=== PATIENT | male | born 1965 | race Caucasian/White ===

== ENCOUNTER 2017-07-21 09:15 | Day surgery (SDC) | payer OTHER ==
[2017-07-19 15:28] VITALS: BMI 29.4
[~2017-07-21 09:15] MED LIST: LACTATED RINGERS 1,000 ML IV SCH
[2017-07-21 09:37] VITALS: TEMP 98.3
[2017-07-21] MEDS ORDERED: LIDOCAINE 1% 20 ML VIAL (10MG/ML) FOR IV START INTRADERMA ONE (09:48)
[2017-07-21] MEDS ORDERED: LIDOCAINE 1% INJ 10MG/ML (20 ML MDV) ONE (10:23)
[2017-07-21] MEDS ORDERED: PROPOFOL 10 MG/ML 20 ML VIAL IV ONE (10:23)
[2017-07-21] MEDS ORDERED: fentaNYL (PF) 50 MCG/ML 2 ML AMP ONE (10:23)
[2017-07-21] MEDS ORDERED: MIDAZOLAM 2 MG/2 ML VIAL ONE (10:23)
--- NOTE | 2017-07-21 10:58 | P.PCN ---
Date of Procedure: 07/21/17 Procedure(s) Performed: Procedure: Colonoscopy and polypectomy. Preoperative diagnosis: Screening for neoplasia. Postoperative diagnosis: 1. Mild diverticulosis with no evidence of acute diverticulitis or strictures. 2. Multiple small polyps snared but no large polyps or cancer. Preparation: HalfLytely prep. Sedation: Was provided by anesthesia. Brief clinical history: The patient is a 52-year-old male who is referred for this evaluation for screening for neoplasia age being his risk factor. He has no abdominal complaints, bleeding or anemia. No family history of colon cancer. This would be his first colonoscopy. Procedure: With the patient on his left lateral decubitus position and after informed consent and adequate sedation, the perianal area was inspected and it did not show any fissures or fistulas. There were no masses felt on digital rectal examination. The Olympus CFQ 160L video colonoscope was then inserted in the rectum in the usual fashion and advanced to the cecum. There were several small and diminutive polyps noted in the cecum, hepatic flexure, sigmoid and rectum which were snared but there were no large polyps or cancer. There were occasional diverticular orifices seen on the right side with no evidence of acute diverticulitis or strictures. The mucosa appeared healthy. I retroflexed the endoscope in the rectum before the endoscope was withdrawn The patient tolerated the procedure well. Plan: The patient was reassured. Discussed dietary measures. I recommended repeat exam in 3-5 years depending on his pathology results. He will follow up with you as planned.
[2017-07-21 11:11] VITALS: RESP 16
[2017-07-21 11:13] VITALS: BP 144/87; PULSE 80
== END 2017-07-21 11:41 | disposition home or self-care (01) ==
LOC: ORWHC2ENDO 09:15
DX: Z12.11 Encounter for screening for malignant neoplasm of colon (principal); D12.0 Benign neoplasm of cecum; D12.3 Benign neoplasm of transverse colon; D12.5 Benign neoplasm of sigmoid colon; D12.8 Benign neoplasm of rectum; K63.5 Polyp of colon; K57.30 Diverticulosis of large intestine without perforation or abscess without bleeding; E78.5 Hyperlipidemia, unspecified; M54.5 Low back pain; I10 Essential (primary) hypertension; F17.200 Nicotine dependence, unspecified, uncomplicated; K21.9 Gastro-esophageal reflux disease without esophagitis; Z79.1 Long term (current) use of non-steroidal anti-inflammatories (NSAID); Z88.0 Allergy status to penicillin; Z79.899 Other long term (current) drug therapy
CPT/HCPCS: 88305; 45385; J2250; J2001; J3010; J2704

== ENCOUNTER → 2019-06-15 | Outpatient (CLI) | payer OTHER ==
--- NOTE | 2019-06-15 12:06 | ECHOS ---
STRESS ECHOCARDIOGRAM DATE OF SERVICE: 06/15/2019 INDICATIONS: Chest pain. MEDICATIONS: BASELINE HEART RATE: 65 BASELINE BLOOD PRESSURE: 110/61 MAXIMUM HEART RATE: 143 MAXIMUM BLOOD PRESSURE: 168/79 85% MPHR: 142 100% MPHR: 167 METS: 9 MAXIMUM STAGE REACHED: III TOTAL EXERCISE TIME: 7-1/2 minutes CLINICAL INFORMATION: Baseline EKG shows sinus rhythm, normal axis, normal intervals. Patient exercised on Damion protocol for a total of 7-1/2 minutes, achieving 9 METs, 85% of predicted maximal heart rate without chest pain or diagnostic ST-segment depression. Baseline echo shows normal left ventricular size, wall motion and systolic function. Postexercise, there is normal hyperdynamic response of all segments of myocardium noted. CONCLUSIONS: 1. Above-average exercise tolerance. 2. Negative stress test by EKG criteria. 3. Negative stress echo. MMMARIO / ANSELMON: [id number] /
== END | disposition home or self-care (01) ==
LOC: RADNMMAIN 09:01
PROVIDERS: ATTEND Family Medicine
DX: I10 Essential (primary) hypertension (principal); I25.10 Atherosclerotic heart disease of native coronary artery without angina pectoris; R53.83 Other fatigue
CPT/HCPCS: 93351

== ENCOUNTER → 2019-09-25 | Outpatient (CLI) | payer OTHER ==
--- NOTE | 2019-09-26 07:51 | US ---
EXAMINATION TYPE: US kidneys/renal and bladder DATE OF EXAM: 09/25/2019 COMPARISON: NONE CLINICAL HISTORY: N39.8 Incomplete voiding.Trouble urinating. EXAM MEASUREMENTS: Right Kidney: 11.7 x 5.6 x 4.8 cm Left Kidney: 11.7 x 5.8 x 4.8 cm Post Void Residual Volume: 194.4 mL Right Kidney: No hydronephrosis or masses seen Left Kidney: No hydronephrosis or masses seen Bladder: wnl Bilateral Jets seen: Yes Normal Post Void Residual: No There is no evidence for hydronephrosis at this point in time. No nephrolithiasis is seen. No huey s are identified. The urinary bladder is anechoic. Bilateral ureteral jets are seen. IMPRESSION: Abnormal post void residual in the urinary bladder of 194.4 mL.
== END | disposition home or self-care (01) ==
LOC: RADUSWWP 15:32
PROVIDERS: ATTEND Family Medicine
DX: N39.0 Urinary tract infection, site not specified (principal); R33.9 Retention of urine, unspecified; Z88.0 Allergy status to penicillin
CPT/HCPCS: 76770

== ENCOUNTER → 2021-09-18 | Outpatient (CLI) | payer OTHER ==
--- NOTE | 2021-09-18 10:58 | NM ---
EXAMINATION TYPE: NM bone scan whole body DATE OF EXAM: 09/18/2021 COMPARISON: NONE HISTORY: Prostate carcinoma Delayed whole-body scanning was performed following the injection of 25.2 mCi Tc 99m MDP. Images acq uired 3 hours post injection. FINDINGS: Soft tissue uptake is normal. Uptake within the feet, ankles, knees, hands, wrists, elbows, shoulders , sternoclavicular joints is likely degenerative. Uptake at the mandible and maxilla likely due to p eriodontal disease No areas of abnormal increased or decreased uptake to suggest metastatic disease. IMPRESSION: No evident metastatic disease.
== END | disposition home or self-care (01) ==
LOC: RADNMMAIN 07:12
PROVIDERS: ATTEND Family Medicine
DX: C61 Malignant neoplasm of prostate (principal)
CPT/HCPCS: 78306; A9503

== ENCOUNTER 2022-10-19 08:42 | Day surgery (SDC) | payer OTHER ==
[~2022-10-19 08:42] MED LIST changes: +LIDOCAINE 1% (10MG/ML) FOR IV START INTRADERMA PRN
[2022-10-19] MEDS ORDERED: LACTATED RINGERS 1,000 ML IV ONE (09:31)
[2022-10-19 09:45] VITALS: TEMP 98.3
[2022-10-19] MEDS ORDERED: PROPOFOL 10 MG/ML 20 ML VIAL IV ONE (10:31)
[2022-10-19] MEDS ORDERED: LIDOCAINE 2% INJ 20 MG/ML (2 ML VIAL) ONE (10:31)
--- NOTE | 2022-10-19 10:50 | P.PCN ---
Date of Procedure: 10/19/22 Procedure(s) Performed: BRIEF HISTORY: Patient is a 57-year-old pleasant male scheduled for an elective colonoscopy as a part of evaluation of positive cologuard/Screening for colon cancer. PROCEDURE PERFORMED: Colonoscopy with snare polypectomy. PREOPERATIVE DIAGNOSIS: Screening for colon cancer/positive cologuard. IV sedation per Anesthesia. PROCEDURE: After informed consent was obtained, the patient, was brought into the endoscopy unit. IV sedation was administered by Anesthesia under continuous monitoring. Digital rectal examination was normal. Initially the Olympus CF-160 flexible video colonoscope was then inserted in the rectum, gradually advanced into the cecum without any difficulty. Careful examination was performed as the scope was gradually being withdrawn. Ileocecal valve and the appendiceal orifice were visualized and appeared normal. Prep was excellent. Mucosa of the cecum, ascending colon, appeared normal. In the transverse colon there was a 5 mm sessile polyp removed by snare polypectomy. In the descending colon there was a 7 mm polyp that was removed by snare polypectomy. Rest of the transverse colon, descending colon, sigmoid colon, and rectum appeared normal. Retroflexion was performed in the rectum and small internal hemorrhoids were seen. The patient tolerated the procedure well. Impression: 5 mm transverse colon polyp status post polypectomy 7 mm descending colon polyp status post polypectomy Small internal hemorrhoids RECOMMENDATIONS: Findings of this examination were discussed with the patient as well as his family. He was advised to follow with the biopsy results. If the biopsies adenoma he can have a repeat colonoscopy in 5 years
[2022-10-19 10:55] VITALS: RESP 16
[2022-10-19 11:09] VITALS: BP 143/93; PULSE 74
== END 2022-10-19 11:40 | disposition home or self-care (01) ==
LOC: ORWHC2ENDO 08:42
PROVIDERS: ATTEND Internal Medicine Gastroenterology
DX: D12.3 Benign neoplasm of transverse colon (principal); K64.8 Other hemorrhoids; I10 Essential (primary) hypertension; E78.5 Hyperlipidemia, unspecified; F17.200 Nicotine dependence, unspecified, uncomplicated; K21.9 Gastro-esophageal reflux disease without esophagitis; Z79.02 Long term (current) use of antithrombotics/antiplatelets; Z79.51 Long term (current) use of inhaled steroids; Z79.899 Other long term (current) drug therapy; Z79.891 Long term (current) use of opiate analgesic; Z79.83 Long term (current) use of bisphosphonates; Z79.811 Long term (current) use of aromatase inhibitors
CPT/HCPCS: 45385; J2704; J2001; 88305